=== PATIENT | female | born 1985 | race Caucasian/White ===

== ENCOUNTER 2017-11-07 08:22 | Emergency (ER) | payer MEDICAID ==
[2017-11-07 08:23] VITALS: BMI 24.5
[2017-11-07 08:28] VITALS: TEMP 99; O2SAT 99
--- NOTE | 2017-11-07 09:02 | ED PDOC ---
HPI: Female Pain Time Seen by Provider: 11/07/17 08:37 Chief Complaint (Nursing): Abdominal Pain Chief Complaint (Provider): Pelvic Pain History Per: Patient History/Exam Limitations: no limitations Onset/Duration Of Symptoms: Hrs Current Symptoms Are (Timing): Still Present Quality Of Discomfort: "Pain" Associated Symptoms: denies: Fever, Chills Additional Complaint(s): 32 year old female presents to the ED for an evaluation of wart on her vagina. Patient states she has had the wart as a little girl and she started having pain around that area 3 weeks ago. Reports last night at 3am the pain became worse on the left side. She tried to message the area without any relief. Denies fever, chills, drainage, pus, vaginal bleeding or discharge. 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) Abnormal Vaginal Bleeding: No Past Medical History Reviewed: Historical Data, Nursing Documentation, Vital Signs Vital Signs: Last Vital Signs Temp 99.0 F 11/07/17 08:30 Pulse 78 11/07/17 08:30 Resp 17 11/07/17 08:30 BP 100/67 11/07/17 08:30 Pulse Ox 99 11/07/17 08:30 - Medical History PMH: Gastritis, Gall Bladder Disease (S/P LAP AMAN) - Surgical History Surgical History: Cholecystectomy - Family History Family History: States: Unknown Family Hx - Social History Current smoker - smoking cessation education provided: No Alcohol: Social Drugs: Denies - Home Medications Home Medications: Ambulatory Orders Medication Instructions Recorded Hydrocortisone [Anusol Hc-1] 1 appl TP DAILY #14 unit 12/16/14 Magnesium Citrate [Magnesia 150 ml PO DAILY PRN 5 Days ml 12/16/14 Citrate] Diclofenac Sodium [Voltaren] 100 gm TP BID #1 tube 11/07/17 - Allergies Allergies/Adverse Reactions: Allergies Allergy/AdvReac Type Severity Reaction Status Date / Time No Known Allergies Allergy Verified 12/16/14 11:38 Review of Systems ROS Statement: Except As Marked, All Systems Reviewed And Found Negative Constitutional: Negative for: Fever, Chills Gastrointestinal: Negative for: Abdominal Pain Genitourinary Female: Positive for: Pelvic Pain. Negative for: Dysuria, Frequency, Incontinence, Vaginal Discharge, Vaginal Bleeding Physical Exam - Reviewed Nursing Documentation Reviewed: Yes Vital Signs Reviewed: Yes - Physical Exam Appears: Positive for: Non-toxic, No Acute Distress Head Exam: Positive for: ATRAUMATIC, NORMAL INSPECTION, NORMOCEPHALIC Skin: Positive for: Normal Color, Warm, Dry Eye Exam: Positive for: Normal appearance, EOMI, PERRL Neck: Positive for: Normal, Painless ROM, Supple. Negative for: Decreased ROM Cardiovascular/Chest: Positive for: Regular Rate, Rhythm. Negative for: Murmur Respiratory: Positive for: Normal Breath Sounds. Negative for: Decreased Breath Sounds, Wheezing, Respiratory Distress Gastrointestinal/Abdominal: Positive for: Normal Exam, Bowel Sounds, Soft. Negative for: Tenderness, Guarding, Rebound Pelvic Exam: Positive for: Lesions (3-4mm wart lesion on left upper part of radia, area is shaved), Other ([employer]lee). Negative for: Discharge ( swelling, redness, drainage) Back: Positive for: Normal Inspection Extremity: Positive for: Normal ROM. Negative for: Tenderness, Pedal Edema, Deformity Neurologic/Psych: Positive for: Alert, Oriented (x3). Negative for: Motor/ Sensory Deficits - ECG O2 Sat by Pulse Oximetry: 99 (RA) Pulse Ox Interpretation: Normal Medical Decision Making Medical Decision Making: Time: 836 Initial Plan: --Reevaluation Scribe Attestation: Documented by Soraya Clark, acting as a scribe for Angélica Fairbanks MD Provider Scribe Attestation: All medical record entries made by the Scribe were at my direction and personally dictated by me. I have reviewed the chart and agree that the record accurately reflects my personal performance of the history, physical exam, medical decision making, and the department course for this patient. I have also personally directed, reviewed, and agree with the discharge instructions and disposition. Disposition - Clinical Impression Clinical Impression: Shaving irritation - Patient ED Disposition Is Patient to be Admitted: No Doctor Will See Patient In The: Office - Disposition Referrals: Jeff Cruz MD [Medical Doctor] - Disposition Time: 08:50 Condition: STABLE Prescriptions: Diclofenac Sodium [Voltaren] 100 gm TP BID #1 tube Instructions: Folliculitis Forms: [facility] (Maltese) - POA Present On Arrival: None
[2017-11-07 09:15] VITALS: BP 110/70; PULSE 72; RESP 18
== END 2017-11-07 09:13 | disposition home or self-care (01) ==
LOC: H.ER 08:22
DX: L98.9 Disorder of the skin and subcutaneous tissue, unspecified (principal); R10.9 Unspecified abdominal pain

== ENCOUNTER 2018-07-29 20:11 | Emergency (ER) | payer MEDICAID ==
[2018-07-29 20:11] VITALS: BMI 24.5
[2018-07-29 20:20] VITALS: BP 119/76; PULSE 86; RESP 18; TEMP 98.6; O2SAT 100
[2018-07-29] MEDS ORDERED: Sodium Chloride 0.9% 1,000 ML IV STA ×2 (20:32→22:16)
--- NOTE | 2018-07-29 20:39 | ED PDOC ---
HPI: Abdomen Time Seen by Provider: 07/29/18 20:23 Chief Complaint (Nursing): Abdominal Pain Chief Complaint (Provider): abdominal pain History Per: Patient History/Exam Limitations: no limitations Onset/Duration Of Symptoms: Days (4) Current Symptoms Are (Timing): Still Present Location Of Pain/Discomfort: Epigastric Quality Of Discomfort: Burning, "Pain" Additional Complaint(s): 32 y/o female presents for evaluation of abdominal pain x 4 days. Patient reports pain mostly in epigatric area, described as "burning", with associated nausea and diarrhea at onset. Patient states she was evaluated by her PMD and prescribed Zofran, Cipro, and Lomotil which helped with diarrhea but states pain persists. Patient also reports pain in right flank area. Denies fever, vomiting, chest pain, shortness of breath, palpitations, changes in bowel movements, urinary symptoms, sick contacts. Returned from [place] last week Past Medical History Reviewed: Historical Data, Nursing Documentation, Vital Signs Vital Signs: Last Vital Signs Temp 98.6 F 07/29/18 20:19 Pulse 86 07/29/18 20:19 Resp 18 07/29/18 20:19 BP 119/76 07/29/18 20:19 Pulse Ox 100 07/29/18 20:19 Primary Care Provider: Willie Singh - Medical History PMH: Gastritis, Gall Bladder Disease (S/P LAP AMAN) - Surgical History Surgical History: Cholecystectomy - Family History Family History: States: Unknown Family Hx - Home Medications Home Medications: Ambulatory Orders Medication Instructions Recorded Hydrocortisone [Anusol Hc-1] 1 appl TP DAILY #14 unit 12/16/14 Magnesium Citrate [Magnesia 150 ml PO DAILY PRN 5 Days ml 12/16/14 Citrate] Diclofenac Sodium [Voltaren] 100 gm TP BID #1 tube 11/07/17 Dicyclomine [Bentyl] 20 mg PO TID PRN #15 tab 07/30/18 Famotidine [Pepcid] 20 mg PO BID #10 tab 07/30/18 - Allergies Allergies/Adverse Reactions: Allergies Allergy/AdvReac Type Severity Reaction Status Date / Time No Known Allergies Allergy Verified 07/29/18 20:21 Review of Systems ROS Statement: Except As Marked, All Systems Reviewed And Found Negative Gastrointestinal: Positive for: Abdominal Pain Physical Exam - Reviewed Nursing Documentation Reviewed: Yes Vital Signs Reviewed: Yes - Physical Exam Appears: Positive for: Well, Non-toxic, No Acute Distress Head Exam: Positive for: ATRAUMATIC, NORMAL INSPECTION, NORMOCEPHALIC Skin: Positive for: Normal Color Eye Exam: Positive for: Normal appearance ENT: Positive for: Normal ENT Inspection Cardiovascular/Chest: Positive for: Regular Rate, Rhythm Respiratory: Positive for: Normal Breath Sounds Gastrointestinal/Abdominal: Positive for: Normal Exam Back: Positive for: Normal Inspection Extremity: Positive for: Normal ROM Neurological/Psych: Positive for: Awake, Alert, Oriented (x3) - Laboratory Results Result Diagrams: 07/29/18 21:15 07/29/18 21:15 - ECG O2 Sat by Pulse Oximetry: 100 - Progress ED Course And Treament: -cbc -cmp -lipase -urinalysis -urine c&s -CT abd/pelvis CT SCAN OF THE ABDOMEN AND PELVIS WITH CONTRAST. CLINICAL HISTORY: Abdominal pain. TECHNIQUE: Multiple axial and coronal CT images were obtained through the abdomen and pelvis after administration of intravenous contrast material. COMMENTS: Diffuse thickening of the bladder suggestive of mild cystitis. Prior cholecystectomy. Unremarkable intrauterine device. Mild chronic changes of pelvic congestion syndrome. The liver is of uniform attenuation without mass or defect. There is no intra or extrahepatic biliary ductal dilatation. The spleen is normal. The pancreas is of normal contour and attenuation characteristics. There is no evidence of adrenal mass. Both kidneys demonstrate prompt and equal nephrograms. The kidneys are normal in size, shape and configuration. There is no evidence of renal or ureteral mass. No renal or ureteral calculi are identified. There is no hydroureter or hydronephrosis. No evidence for appendicitis. There is no bowel wall thickening. No evidence for small or large bowel obstruction. There is no evidence of abdominal ascites or lymphadenopathy. There is no evidence of intrinsic or extrinsic bladder mass. There is no pelvic ascites or lymphadenopathy. Images of the lung bases show no evidence of pleural or parenchymal mass. There are no pleural effusions. The bony structures are free of lytic or blastic lesions. IMPRESSION: Diffuse thickening of the bladder suggestive of mild cystitis. Prior cholecystectomy. Unremarkable intrauterine device. Mild chronic changes of pelvic congestion syndrome On re-eval, patient states pain improved. Patient educated on findings, discharged with rx Bentyl, Pepcid Advised to continue previously prescribed medications Follow up PMD/GI Return precautions given Disposition - Clinical Impression Clinical Impression: Abdominal pain - Patient ED Disposition Is Patient to be Admitted: No Counseled Patient/Family Regarding: Studies Performed, Diagnosis, Need For Followup, Rx Given - Disposition Disposition: Routine/Home Disposition Time: 02:32 Condition: IMPROVED Prescriptions: Dicyclomine [Bentyl] 20 mg PO TID PRN #15 tab PRN Reason: Pain, Mild (1-3) Famotidine [Pepcid] 20 mg PO BID #10 tab Instructions: Acute Abdomen (Belly Pain) Forms: [facility] School/Work Excuse
[2018-07-29 21:21] LABS: BASO % 0.3 % (0.0-2.0); EOS # 0.2 K/uL (0.0-0.7); EOS % 3.3 % (0.0-4.0); HEMOGLOBIN 13.3 g/dL (12.0-16.0); LYMPH # 0.7 K/uL (1.0-4.3); LYMPH % 13.7 % (20.0-40.0); MEAN CELL VOLUME 87.6 fl (81.0-99.0); MEAN CORPUSCULAR HEMOGLOBIN 29.6 pg (27.0-31.0); MEAN CORPUSCULAR HGB CONC 33.8 g/dL (33.0-37.0); MEAN PLATELET VOLUME 8.4 fl (7.2-11.7); MONO # 0.2 K/uL (0.0-0.8); MONO % 4.7 % (0.0-10.0); NEUT # 3.9 K/uL (1.8-7.0); RBC 4.5 Mil/uL (3.80-5.20); RED CELL DISTRIBUTION WIDTH 13.4 % (11.5-14.5)
[2018-07-29 21:23] LABS: SQUAMOUS EPITHIAL 1 /hpf (0-5); URINE AMORPHOUS SEDIMENT RARE /ul (<OCC); URINE BACTERIA RARE (<OCC); URINE BILIRUBIN NEGATIVE (NEGATIVE); URINE BLOOD NEGATIVE (NEGATIVE); URINE CLARITY SLIGHTY-CLOUDY (Clear); URINE COLOR YELLOW (YELLOW); URINE GLUCOSE (UA) NEG (NEGATIVE); URINE LEUKOCYTE ESTERASE NEG Leu/uL (Negative); URINE PROTEIN 100 mg/dL (NEGATIVE); URINE UROBILINOGEN 0.2-1.0 mg/dL (0.2-1.0)
[2018-07-29 21:29] LABS: ALB/GLOB RATIO 1.3 (1.0-2.1); ALBUMIN 4.2 g/dL (3.5-5.0); ALT/SGPT 50 U/L (9-52); AST/SGOT 62 U/L (14-36); BLOOD UREA NITROGEN 11 mg/dl (7-17); CALCIUM 8.7 mg/dL (8.4-10.2); GFR NON-AFRICAN AMERICAN > 60; LIPASE 60 U/L (23-300)
[2018-07-29] MEDS ORDERED: Iohexol 240 (50 ml) PO ONE (22:16)
[2018-07-29] MEDS ORDERED: Iohexol 240 (50 ml) ONE (22:27)
[2018-07-30] MEDS ORDERED: Iohexol 300 100 ML IJ ONE (00:48)
[2018-07-30] MEDS ORDERED: Sodium Chloride 0.9% 50 ML IV ONE (00:48)
--- NOTE | 2018-07-30 09:26 | CT ---
Date of service: 07/30/2018 PROCEDURE: CT Abdomen and Pelvis with contrast HISTORY: abd pain COMPARISON: None TECHNIQUE: CT scan of the abdomen and pelvis was performed after administration of intravenous contrast. Oral contrast was administered. Coronal and sagittal reformatted images were obtained. Contrast dose: 95 mL Omnipaque 300 Radiation dose: Total exam DLP = 430.04 mGy-cm. This CT exam was performed using one or more of the following dose reduction techniques: Automated exposure control, adjustment of the mA and/or kV according to patient size, and/or use of iterative reconstruction technique. FINDINGS: LOWER THORAX: The visualized lungs are clear. There is pectus excavatum. LIVER: Normal in size with homogeneous enhancement. Diffuse fatty liver. No gross lesion or ductal dilatation. GALLBLADDER AND BILE DUCTS: Surgically absent. PANCREAS: Normal in size with homogeneous enhancement. No gross lesion or ductal dilatation. SPLEEN: Normal in size and appearance. ADRENALS: No discrete nodule. KIDNEYS AND URETERS: Normal in size with homogeneous enhancement. No hydronephrosis. No solid mass. VASCULATURE: No aortic aneurysm. There are no aortic atherosclerotic calcifications or mural plaque present. BOWEL: Evaluation of the bowel is limited in the absence of oral contrast. The small bowel loops are normal in caliber. The colon is grossly normal in appearance. No bowel wall thickening or obstruction. APPENDIX: Normal appendix. PERITONEUM: There is a small amount of free fluid in the right adnexa. No free air. LYMPH NODES: No enlarged lymph nodes. BLADDER: Partially decompressed. REPRODUCTIVE: The uterus is normal in size. An IUD remains in satisfactory position. There is a 2.3 x 1.7 cm involuting cyst in the left ovary. BONES: No acute fracture. 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 OTHER FINDINGS: IMPRESSION: No acute abdominal or pelvic abnormality. 2.3 x 1.7 cm involuting cyst in the left ovary. Small amount of free fluid in the right adnexa. LD remains in satisfactory position. A preliminary report was provided by [facility].
== END 2018-07-30 03:00 | disposition home or self-care (01) ==
LOC: H.ER 20:11
DX: R10.13 Epigastric pain (principal); N94.89 Other specified conditions associated with female genital organs and menstrual cycle; Z79.899 Other long term (current) drug therapy; Z90.49 Acquired absence of other specified parts of digestive tract
CPT/HCPCS: 74177; 80053; 81003; 81025; 83690; 85025; 87086; 96361; 96374; 96375; 99283; J1885; J7030; Q9966; Q9967